=== PATIENT | female | born 1940 | race Hispanic/Latino ===

== ENCOUNTER 2024-02-06 10:19 | Emergency (ER) | payer MEDICARE ==
[~2024-02-06] VITALS: Ht 149.9 cm; Wt 49.9 kg
[2024-02-06 12:16] VITALS: PULSE 82; RESP 16; TEMP 98.8; O2SAT 98
== END 2024-02-06 12:57 | disposition home or self-care (01) ==
LOC: ER 10:28
DX: R10.2 Pelvic and perineal pain (principal); M54.50 Low back pain, unspecified; W01.0XXA Fall on same level from slipping, tripping and stumbling without subsequent striking against object, initial encounter; Y93.01 Activity, walking, marching and hiking; Y92.89 Other specified places as the place of occurrence of the external cause; I10 Essential (primary) hypertension; E11.9 Type 2 diabetes mellitus without complications; E78.5 Hyperlipidemia, unspecified; H40.9 Unspecified glaucoma
CPT/HCPCS: 70450; 72125; 72192; 99283